=== PATIENT | male | born 1975 | race American Indian/Alaskan Native ===

== ENCOUNTER 2019-06-07 17:33 | Emergency (ER) | payer OTHER ==
--- NOTE | 2019-06-07 18:15 | XRay Report ---
LEFT ANKLE 3 VIEWS LEFT FOOT 3 VIEWS INDICATION: fall off roof. COMPARISON: No relevant prior imaging study available. FINDINGS: Left ankle: There is a minimally displaced fracture through the base of the medial malleolus. There i s a small avulsion fracture along the dorsal aspect of the distal talus, this may arise from the dist al talus or navicular. There appears to be minimally displaced fracture through the posterior process of the talus as well. No additional fractures are seen at the ankle. No acute fracture is seen at the left foot. No dislocation is seen. IMPRESSION: 1. Left ankle fractures as above. Signer Name: Marcio Bush MD Signed: 06/07/2019 6:10 PM Workstation Name: [id number]
--- NOTE | 2019-06-07 19:17 | Emergency Department Report ---
ED Lower Extremity HPI - General Chief Complaint: Extremity Injury, Lower Stated Complaint: FALL, ANKLE Time Seen by Provider: 06/07/19 17:56 Source: patient Mode of arrival: Ambulatory Limitations: No Limitations - History of Present Illness Initial Comments: Patient is a 43-year-old male who presents the emergency room with complaints of left ankle pain that began earlier today. 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 He states he accidentally slipped and fell. He states most of the weight fell onto his left ankle and he fell into a ray. He denies hitting his head or loss of consciousness, any other injury, he denies any neck pain or back pain. He states he was ambulatory after the incident and finished his job but when he got home he began to have increased swelling and pain. He has a past medical history of asthma. He has an allergy to theophylline. - Related Data Previous Rx's Medication Instructions Recorded Last Taken Type HYDROcodone/APAP 5-325 [[place] 1 each PO Q6HR PRN #10 tablet 06/07/19 Unknown Rx 5/325] Allergies Allergy/AdvReac Type Severity Reaction Status Date / Time theophylline [From Chau-Dur] Allergy Shortness Verified 06/07/19 17:34 of Breath ED Review of Systems ROS: Stated complaint: FALL, ANKLE Other details as noted in HPI Comment: All other systems reviewed and negative ED Past Medical Hx - Past Medical History Previous Medical History?: No - Surgical History Additional Surgical History: ANKLE SURGERY - Social History Smoking Status: Current Every Day Smoker - Medications Home Medications: Home Medications Medication Instructions Recorded Confirmed Last Taken Type HYDROcodone/APAP 5-325 [[place] 1 each PO Q6HR PRN #10 tablet 06/07/19 Unknown Rx 5/325] ED Physical Exam - General Limitations: No Limitations General appearance: alert, in no apparent distress - Head Head exam: Present: atraumatic, normocephalic - Eye Eye exam: Present: normal appearance, PERRL, EOMI, other (no racoon eyes). Absent: periorbital swelling, periorbital tenderness - ENT ENT exam: Present: mucous membranes moist - Neck Neck exam: Present: normal inspection, full ROM. Absent: tenderness - Respiratory Respiratory exam: Present: normal lung sounds bilaterally. Absent: respiratory distress, wheezes, rales, rhonchi, stridor, chest wall tenderness, accessory muscle use, decreased breath sounds, prolonged expiratory - Cardiovascular Cardiovascular Exam: Present: regular rate, normal rhythm, normal heart sounds. Absent: systolic murmur, diastolic murmur, rubs, gallop - Extremities Exam Extremities exam: Present: other (ttp to the medial and lateral and anterior left ankle, there is moderate ankle swelling, slightly decreased ROM secondary to pain, no ttp to the foot or toes, neurovascularly intact) - Back Exam Back exam: Present: normal inspection, full ROM. Absent: paraspinal tenderness, vertebral tenderness - Neurological Exam Neurological exam: Present: alert, oriented X3 - Psychiatric Psychiatric exam: Present: normal affect, normal mood - Skin Skin exam: Present: warm, dry, intact ED Course Vital Signs 06/07/19 06/07/19 17:35 19:30 Temperature 97.8 F Pulse Rate 111 H 89 Respiratory 20 16 Rate Blood Pressure 144/93 Blood Pressure 129/82 [Right] O2 Sat by Pulse 94 97 Oximetry ED Lower Extremity MDM - Radiology Data Radiology results: report reviewed LEFT ANKLE 3 VIEWS LEFT FOOT 3 VIEWS INDICATION: fall off roof. COMPARISON: No relevant prior imaging study available. FINDINGS: Left ankle: There is a minimally displaced fracture through the base of the medial malleolus. There is a small avulsion fracture along the dorsal aspect of the distal talus, this may arise from the distal talus or navicular. There appears to be minimally displaced fracture through the posterior process of the talus as well. No additional fractures are seen at the ankle. No acute fracture is seen at the left foot. No dislocation is seen. IMPRESSION: 1. Left ankle fractures as above. Signer Name: Marcio Bush MD Signed: 06/07/2019 6:10 PM Workstation Name: [id number] Transcribed By: SW Dictated By: Marcio Bush MD Electronically Authenticated By: Marcio Bush MD Signed Date/Time: 06/07/191809 DD/ 07 TD/TT: - Medical Decision Making Patient is a 43-year-old male who presents the emergency room with complaints of left ankle pain that began earlier today. 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 He states he accidentally slipped and fell. He states most of the weight fell onto his left ankle and he fell into a ray. He denies hitting his head or loss of consciousness, any other injury, he denies any back pain or neck pain. He states he was ambulatory after the incident and finished his job but when he got home he began to have increased swelling and pain. He has a past medical history of asthma. He has an allergy to theophylline. Vitals with elevated heart rate which improved upon repeat to normal. On exam: ttp to the medial and lateral and anterior left ankle, there is moderate ankle swelling, slightly decreased ROM secondary to pain, no ttp to the foot or toes, neurovascularly intact. XR left ankle and foot: Left ankle: There is a minimally displaced fracture through the base of t he medial malleolus. There is a small avulsion fracture along the dorsal aspect of the distal talus, this may arise from the distal talus or navicular. There appears to be minimally displaced fracture through the posterior process of the talus as well. No additional fractures are seen at the ankle. No acute fracture is seen at the left foot. No dislocation is seen. Patient placed in [place] splint by EMT and remained neurovascularly intact. Patient given crutches and advised not to bear weight at all on the left leg. Patient given prescription for [place]. Advised patient Take medication as prescribed as needed. Do not drive or operate heavy machinery while taking pain medication. Please do not bear weight on your left leg. Follow-up with orthopedic doctor. Return to the emergency room immediately for any new or worsening symptoms. - Differential Diagnosis strain, sprain, fx, dislocation Critical care attestation.: If time is entered above; I have spent that time in minutes in the direct care of this critically ill patient, excluding procedure time. ED Disposition Clinical Impression: Fracture of medial malleolus, left, closed Qualifiers: Encounter type: initial encounter Fracture alignment: nondisplaced Qualified Code(s): S82.55XA - Nondisplaced fracture of medial malleolus of left tibia, initial encounter for closed fracture Fracture of left talus Qualifiers: Encounter type: initial encounter Fracture type: closed Talus location: unspecified portion of talus Fracture alignment: nondisplaced Qualified Code(s): S92.102A - Unspecified fracture of left talus, initial encounter for closed fracture Disposition: DC-01 TO HOME OR SELFCARE Is pt being admited?: No Does the pt Need Aspirin: No Condition: Stable Instructions: Ankle Fracture (ED) Additional Instructions: Take medication as prescribed as needed. Do not drive or operate heavy machinery while taking pain medication. Please do not bear weight on your left leg. Follow-up with orthopedic doctor. Return to the emergency room immediately for any new or worsening symptoms. Prescriptions: HYDROcodone/APAP 5-325 [[place] 5/325] 1 each PO Q6HR PRN #10 tablet PRN Reason: Pain , Severe (7-10) Referrals: AVERY BRUNSON MD [Staff Physician] - 2-3 Days [facility] [Provider Group] - 2-3 Days Time of Disposition: 19:17 Print Language: TELUGU
[2019-06-07 19:45] VITALS: BP 129/82
== END 2019-06-07 19:45 | disposition home or self-care (01) ==
LOC: ED 17:33
DX: S82.55XA Nondisplaced fracture of medial malleolus of left tibia, initial encounter for closed fracture (principal); S92.102A Unspecified fracture of left talus, initial encounter for closed fracture; F17.200 Nicotine dependence, unspecified, uncomplicated; Z98.890 Other specified postprocedural states; Z79.899 Other long term (current) drug therapy; Z88.8 Allergy status to other drugs, medicaments and biological substances; W01.0XXA Fall on same level from slipping, tripping and stumbling without subsequent striking against object, initial encounter; Y93.89 Activity, other specified; Y92.511 Restaurant or cafe as the place of occurrence of the external cause; Y99.8 Other external cause status
CPT/HCPCS: 99283

== ENCOUNTER 2019-06-13 18:02 | Emergency (ER) | payer OTHER ==
[~2019-06-13 18:02] MED LIST: IPRATROPIUM/ALBUTEROL SULFATE 3 ML AMPUL.NEB IH ONE
[2019-06-13] MEDS ORDERED: IPRATROPIUM/ALBUTEROL SULFATE 3 ML AMPUL.NEB IH ONE (18:15)
[2019-06-13] MEDS ORDERED: ALBUTEROL 2.5 MG/3 ML NEBU IH ONE (21:46)
[2019-06-13] MEDS ORDERED: methylPREDNISolone Sod Succinate 125 MG/2 ML INJ IM ONE (21:47)
--- NOTE | 2019-06-13 23:12 | Emergency Department Report ---
- General Chief Complaint: Adult Asthma Stated Complaint: ASTHMA Source: patient Mode of arrival: Wheelchair Limitations: No Limitations - History of Present Illness Initial Comments: Patient is a 43-year-old male with a history of asthma and who continues to smoke cigarettes and who presented to the ED with complaint of acute onset persistent nasal and sinus congestion, persistent dry cough with shortness of breath and wheezing for the last 2 days after he ran out of his albuterol inhaler and nebulizers at home. Patient states that in the last 12 hours the wheezing and shortness of breath as well as dry cough have worsened. Patient denies fever, chills, dizziness, nausea, vomiting, chest pain, sore throat, nasal and sinus congestion, abdominal pain, headache, diarrhea, palpitations, and back pain. MD Complaint: cough, rhinorrhea, nasal congestion, other (shortness of breath) -: Sudden, days(s) (2) Severity: severe Severity scale (0 -10): 7 Quality: dull, aching Consistency: intermittent Improves With: nothing Worsens With: nothing Associated Symptoms: denies other symptoms, rhinorrhea, nasal congestion, cough, shortness of breath. denies: fever, chills, myalgias, diaphoresis, headache, sore throat, chest pain, abdominal pain, nausea, vomiting, diarrhea, dysuria, rash, confusion, right sweats, weight loss, epistaxis, ear pain Treatments Prior to Arrival: none - Related Data Previous Rx's Medication Instructions Recorded Last Taken Type HYDROcodone/APAP 5-325 [[place] 1 each PO Q6HR PRN #10 tablet 06/07/19 Unknown Rx 5/325] Albuterol Sulfate [Albuterol 0.63% 3 ml IH Q6H PRN #75 ml 06/13/19 Unknown Rx NEBS] Albuterol Sulfate [Proventil Hfa] 1 - 2 puff IH Q6H PRN #1 inh 06/13/19 Unknown Rx Benzonatate [Tessalon Perles] 100 mg PO Q8HR #30 capsule 06/13/19 Unknown Rx Cetirizine HCl [Zyrtec 10mg tab] 10 mg PO DAILY #30 tablet 06/13/19 Unknown Rx Prednisone [predniSONE 10 mg 10 mg PO .TAPER #21 tab.ds.pk 06/13/19 Unknown Rx (6-Day Pack, 21 Tabs)] Allergies Allergy/AdvReac Type Severity Reaction Status Date / Time theophylline [From Chau-Dur] Allergy Shortness Verified 06/07/19 17:34 of Breath ED Review of Systems ROS: Stated complaint: ASTHMA Other details as noted in HPI Constitutional: denies: chills, fever Eyes: denies: eye pain, eye discharge, vision change ENT: congestion. denies: ear pain, throat pain Respiratory: cough, shortness of breath, SOB at rest, wheezing Cardiovascular: denies: chest pain, palpitations Endocrine: no symptoms reported Gastrointestinal: denies: abdominal pain, nausea, diarrhea Genitourinary: denies: urgency, dysuria Musculoskeletal: denies: back pain, joint swelling, arthralgia Skin: denies: rash, lesions Neurological: denies: headache, weakness, paresthesias Psychiatric: denies: anxiety, depression Hematological/Lymphatic: denies: easy bleeding, easy bruising ED Past Medical Hx - Past Medical History Previous Medical History?: Yes Hx Asthma: Yes - Surgical History Past Surgical History?: Yes Additional Surgical History: ANKLE SURGERY - Social History Smoking Status: Never Smoker - Medications Home Medications: Home Medications Medication Instructions Recorded Confirmed Last Taken Type HYDROcodone/APAP 5-325 [[place] 1 each PO Q6HR PRN #10 tablet 06/07/19 Unknown Rx 5/325] Albuterol Sulfate [Albuterol 0.63% 3 ml IH Q6H PRN #75 ml 06/13/19 Unknown Rx NEBS] Albuterol Sulfate [Proventil Hfa] 1 - 2 puff IH Q6H PRN #1 inh 06/13/19 Unknown Rx Benzonatate [Tessalon Perles] 100 mg PO Q8HR #30 capsule 06/13/19 Unknown Rx Cetirizine HCl [Zyrtec 10mg tab] 10 mg PO DAILY #30 tablet 06/13/19 Unknown Rx Prednisone [predniSONE 10 mg 10 mg PO .TAPER #21 tab.ds.pk 06/13/19 Unknown Rx (6-Day Pack, 21 Tabs)] ED Physical Exam - General Limitations: No Limitations General appearance: alert, in no apparent distress - Head Head exam: Present: atraumatic, normocephalic, normal inspection - Eye Eye exam: Present: normal appearance, PERRL, EOMI Pupils: Present: normal accommodation - ENT ENT exam: Present: normal exam, normal orophraynx, mucous membranes moist, TM's normal bilaterally, normal external ear exam - Neck Neck exam: Present: normal inspection, full ROM. Absent: tenderness, lymphadenopathy - Respiratory Respiratory exam: Present: wheezes (Moderately diffuse coarse wheezes throughout). Absent: respiratory distress, rales, rhonchi, chest wall tenderness, accessory muscle use, decreased breath sounds - Cardiovascular Cardiovascular Exam: Present: regular rate, normal rhythm, normal heart sounds. Absent: systolic murmur, diastolic murmur, rubs, gallop - GI/Abdominal GI/Abdominal exam: Present: soft, normal bowel sounds. Absent: tenderness, guarding, rebound, hyperactive bowel sounds, hypoactive bowel sounds, organomegaly - Extremities Exam Extremities exam: Present: normal inspection, full ROM, normal capillary refill - Back Exam Back exam: Present: normal inspection, full ROM. Absent: tenderness, CVA tenderness (R), muscle spasm, paraspinal tenderness, vertebral tenderness - Neurological Exam Neurological exam: Present: alert, oriented X3, CN II-XII intact, normal gait, reflexes normal - Psychiatric Psychiatric exam: Present: normal affect, normal mood - Skin Skin exam: Present: warm, dry, intact, normal color. Absent: rash ED Course Vital Signs 06/13/19 18:10 Temperature 98.4 F Pulse Rate 99 H Respiratory 22 Rate Blood Pressure 143/116 [Left] O2 Sat by Pulse 97 Oximetry ED Medical Decision Making - Radiology Data Radiology results: report reviewed, image reviewed Findings [facility] [address] [place] [address] XRay Report Signed Patient: DEVAN SOARES MR# : [id number] : 1975 Acct:[id number] Age/Sex: 43 / M ADM Date: 06/13/19 Loc: ED Attending Dr: Ordering Physician: RAMILA LISA Date of Service: 06/13/19 Procedure(s): XR chest routine 2V Accession Number(s): [id number] cc: RAMILA LISA Fluoro Time In Minutes: CHEST 2 VIEWS INDICATION / CLINICAL INFORMATION: MAIN: COUGH, DYSPNEA; Pt. c/o asthma exacerbation.. COMPARISON: None available. FINDINGS: SUPPORT DEVICES: None. HEART / MEDIASTINUM: No significant abnormality. LUNGS / PLEURA: No significant pulmonary or pleural abnormality. No pneumothorax. ADDITIONAL FINDINGS: Left second rib deformity may be the result of remote trauma. IMPRESSION: 1. No acute findings. Signer Name: Bhupinder Arrington MD Signed: 06/13/2019 11:07 PM Workstation Name: [id number] Transcribed By: ADALBERTO Dictated By: Bhupinder Arrington MD Electronically Authenticated By: Bhupinder Arrington MD Signed Date/Time: 06/13/192306 DD/ 05 TD/TT: - Medical Decision Making This is a 43-year-old male with a history of asthma and who continues to smoke cigarettes and who presented to the ED with complaint of acute onset persistent nasal and sinus congestion, persistent dry cough with shortness of breath and wheezing for the last 2 days after he ran out of his albuterol inhaler and nebulizers at home. In the ED, patient is alert and oriented x3 and is not in distress with normal vital signs, with oxygen saturation of 97% in room air. Physical exam revealed diffuse moderate coarse wheezes throughout the lung. Patient received DuoNeb treatment as well as albuterol treatment and steroids in the ED. Chest x-ray shows no acute cardiopulmonary abnormalities or pneumonitis. On reevaluation, the wheezing resolved and patient felt better. Patient was discharged home with a refill of his albuterol nebulizer and inhalers, and prescription for oral prednisone. Patient was advised to follow- up with his primary care physician in 7 to 10 days for reevaluation or return to the ED immediately if symptoms get worse. - Differential Diagnosis Asthma; Bronchitis; Pneumonia; URI; Allergic rhinitis Critical care attestation.: If time is entered above; I have spent that time in minutes in the direct care of this critically ill patient, excluding procedure time. ED Disposition Clinical Impression: Acute bronchitis with asthma with acute exacerbation, Acute upper respiratory infection Acute asthma exacerbation Qualifiers: Asthma severity: moderate Asthma persistence: persistent Qualified Code(s): J45.41 - Moderate persistent asthma with (acute) exacerbation Disposition: -01 TO HOME OR SELFCARE Is pt being admited?: No Does the pt Need Aspirin: No Condition: Stable Instructions: Acute Bronchitis (ED), Asthma (ED) Additional Instructions: Your symptoms are due to asthma and bronchitis exacerbation. Therefore take medication with food, drink plenty fluids and follow-up with your primary care physician in 5 to 7 days for reevaluation. Return to the ED immediately if symptoms get worse. Prescriptions: Albuterol Sulfate [Albuterol 0.63% NEBS] 3 ml IH Q6H PRN #75 ml PRN Reason: Dyspnea Prednisone [predniSONE 10 mg (6-Day Pack, 21 Tabs)] 10 mg PO .TAPER #21 tab.ds.pk Albuterol Sulfate [Proventil Hfa] 1 - 2 puff IH Q6H PRN #1 inh PRN Reason: Dyspnea Benzonatate [Tessalon Perles] 100 mg PO Q8HR #30 capsule Cetirizine HCl [Zyrtec 10mg tab] 10 mg PO DAILY #30 tablet Referrals: [facility] [Provider Group] - 7-10 days Time of Disposition: 23:12 Print Language: EMIRATI
[2019-06-14 00:06] VITALS: BP 125/88
== END 2019-06-14 00:04 | disposition home or self-care (01) ==
LOC: ED 18:02
DX: J45.901 Unspecified asthma with (acute) exacerbation (principal); J20.9 Acute bronchitis, unspecified
CPT/HCPCS: 71046; 94640; 96372; 99283; J2930

== ENCOUNTER 2019-07-19 04:28 | Emergency (ER) | payer OTHER ==
[2019-07-19 04:54] VITALS: BP 164/99
[2019-07-19] MEDS ORDERED: IPRATROPIUM/ALBUTEROL SULFATE 3 ML AMPUL.NEB IH ONE (05:45)
[2019-07-19] MEDS ORDERED: SODIUM CHLORIDE 0.9% 1000 ML 1,000 ML IV ONE (05:46)
[2019-07-19] MEDS ORDERED: methylPREDNISolone Sod Succinate 125 MG/2 ML INJ IV ONE (05:47)
[2019-07-19 06:23] LABS: Basophils % (Auto) 0.5 % (0.0-1.8); Eosinophils # (Auto) 0.3 K/mm3 (0.0-0.4); Eosinophils % (Auto) 4.1 % (0.0-4.3); Hematocrit 44.2 % (35.5-45.6); Hemoglobin 14.9 gm/dl (11.8-15.2); Lymphocytes # (Auto) 0.9 K/mm3 (1.2-5.4); Lymphocytes % (Auto) 14.3 % (13.4-35.0); Mean Corpuscular HGB Conc 34 % (32-34); Mean Corpuscular Volume 92 fl (84-94); Monocytes # (Auto) 0.6 K/mm3 (0.0-0.8); Monocytes % (Auto) 9.1 % (0.0-7.3); Platelet Count 251 K/mm3 (140-440); Red Blood Count 4.81 M/mm3 (3.65-5.03); Red Cell Distribution Width 12.9 % (13.2-15.2)
--- NOTE | 2019-07-19 06:25 | XRay Report ---
CHEST 1 VIEW INDICATION: dyspnea, asthma. COMPARISON: 06/13/2019 FINDINGS: Support devices: None. Heart: Within normal limits. Lungs/Pleura: No acute air space or interstitial disease. Additional findings: None. IMPRESSION: 1. No acute findings. Signer Name: James Sanchez MD Signed: 07/19/2019 6:21 AM Workstation Name: [id number]
[2019-07-19 06:39] LABS: Alanine Aminotransferase 16 units/L (7-56); Albumin 4.4 g/dL (3.9-5); BUN/Creatinine Ratio 8; Blood Urea Nitrogen 9 mg/dL (9-20); Calcium 9.4 mg/dL (8.4-10.2); Hemolysis Index 6
[2019-07-19] MEDS ORDERED: ALBUTEROL 2.5 MG/3 ML NEBU IH ONE (06:46)
[2019-07-19] MEDS ORDERED: POTASSIUM CHLORIDE ER 20 MEQ TAB PO ONE (06:56)
--- NOTE | 2019-07-19 07:19 | Emergency Department Report ---
ED Shortness of Breath HPI - General Chief Complaint: Dyspnea/Respdistress Stated Complaint: WHEEZING Source: patient Mode of arrival: Ambulatory Limitations: No Limitations - History of Present Illness Initial Comments: Patient is a 43-year-old -[place] male with a history of asthma and who smokes cigarettes presents to the ED with complaint of acute onset persistent s hortness of breath, chest tightness and persistent dry cough for the last 4 hours. Patient states that he try to use his albuterol inhaler and nebulizers at home with no relief. Patient states that he could not walk because of persistent shortness of breath and had to come to the ED via EMS. Patient states that over 12 hours ago he smoked cigarettes and suspect that this may have triggered his asthma attack. Patient denies chest pain, shortness of breath, nausea, vomiting, fever, chills, dizziness, syncope, headache, abdominal pain, nasal and sinus congestion, sore throat, seizures, diaphoresis or palpitations. MD Complaint: shortness of breath, cough, chest pain (Chest wall tightness), "asthma attack" -: Sudden, hour(s) (4) Severity: severe Pain Scale: 7 Quality: dull, other (tightness) Consistency: constant Improves With: nothing Worsens With: nothing Known History Of: asthma Context: smoke/fume exposure, anxiety Associated Symptoms: cough Treatments Prior to Arrival: bronchodilator - Related Data Home Oxygen Therapy: No Previous Rx's Medication Instructions Recorded Last Taken Type HYDROcodone/APAP 5-325 [Welch 1 each PO Q6HR PRN #10 tablet 06/07/19 Unknown Rx 5/325] Albuterol Sulfate [Albuterol 0.63% 3 ml IH Q6H PRN #75 ml 06/13/19 Unknown Rx NEBS] Benzonatate [Tessalon Perles] 100 mg PO Q8HR #30 capsule 06/13/19 Unknown Rx Cetirizine HCl [Zyrtec 10mg tab] 10 mg PO DAILY #30 tablet 06/13/19 Unknown Rx Prednisone [predniSONE 10 mg 10 mg PO .TAPER #21 tab.ds.pk 06/13/19 Unknown Rx (6-Day Pack, 21 Tabs)] ALBUTEROL NEB's [Proventil 0.083% 3 ml IH Q6H PRN #75 ml 07/19/19 Unknown Rx NEBS] Albuterol Sulfate [Proventil Hfa] 1 - 2 puff IH Q6H PRN #1 inh 07/19/19 Unknown Rx Azithromycin [Zithromax Z-CARLOS] 250 mg PO DAILY #6 tablet 07/19/19 Unknown Rx Benzonatate [Tessalon Perles] 100 mg PO Q8HR #30 capsule 07/19/19 Unknown Rx Prednisone [predniSONE 10 mg 10 mg PO .TAPER #21 tab.ds.pk 07/19/19 Unknown Rx (6-Day Pack, 21 Tabs)] Allergies Allergy/AdvReac Type Severity Reaction Status Date / Time theophylline [From Chau-Dur] Allergy Shortness Verified 07/19/19 04:45 of Breath ED Review of Systems ROS: Stated complaint: WHEEZING Other details as noted in HPI Constitutional: denies: chills, fever Eyes: denies: eye pain, eye discharge, vision change ENT: congestion. denies: ear pain, throat pain Respiratory: cough, shortness of breath, wheezing Cardiovascular: chest pain (Diffuse chest tightness). denies: palpitations Endocrine: no symptoms reported Gastrointestinal: denies: abdominal pain, nausea, diarrhea Genitourinary: denies: urgency, dysuria Musculoskeletal: denies: back pain, joint swelling, arthralgia Skin: denies: rash, lesions Neurological: denies: headache, weakness, paresthesias Psychiatric: anxiety. denies: depression Hematological/Lymphatic: denies: easy bleeding, easy bruising ED Past Medical Hx - Past Medical History Hx Asthma: Yes - Surgical History Additional Surgical History: ANKLE SURGERY - Social History Smoking Status: Never Smoker Substance Use Type: Marijuana - Medications Home Medications: Home Medications Medication Instructions Recorded Confirmed Last Taken Type HYDROcodone/APAP 5-325 [Welch 1 each PO Q6HR PRN #10 tablet 06/07/19 Unknown Rx 5/325] Albuterol Sulfate [Albuterol 0.63% 3 ml IH Q6H PRN #75 ml 06/13/19 Unknown Rx NEBS] Benzonatate [Tessalon Perles] 100 mg PO Q8HR #30 capsule 06/13/19 Unknown Rx Cetirizine HCl [Zyrtec 10mg tab] 10 mg PO DAILY #30 tablet 06/13/19 Unknown Rx Prednisone [predniSONE 10 mg 10 mg PO .TAPER #21 tab.ds.pk 06/13/19 Unknown Rx (6-Day Pack, 21 Tabs)] ALBUTEROL NEB's [Proventil 0.083% 3 ml IH Q6H PRN #75 ml 07/19/19 Unknown Rx NEBS] Albuterol Sulfate [Proventil Hfa] 1 - 2 puff IH Q6H PRN #1 inh 07/19/19 Unknown Rx Azithromycin [Zithromax Z-CARLOS] 250 mg PO DAILY #6 tablet 07/19/19 Unknown Rx Benzonatate [Tessalon Perles] 100 mg PO Q8HR #30 capsule 07/19/19 Unknown Rx Prednisone [predniSONE 10 mg 10 mg PO .TAPER #21 tab.ds.pk 07/19/19 Unknown Rx (6-Day Pack, 21 Tabs)] ED Physical Exam - General Limitations: No Limitations General appearance: alert, in no apparent distress - Head Head exam: Present: atraumatic, normocephalic, normal inspection - Eye Eye exam: Present: normal appearance, PERRL, EOMI Pupils: Present: normal accommodation - ENT ENT exam: Present: normal exam, normal orophraynx, mucous membranes moist, TM's normal bilaterally, normal external ear exam - Neck Neck exam: Present: normal inspection, full ROM - Respiratory Respiratory exam: Present: wheezes (Diffuse coarse wheezes throughout). Absent: respiratory distress, rales, rhonchi, chest wall tenderness, accessory muscle use, decreased breath sounds, prolonged expiratory - Cardiovascular Cardiovascular Exam: Present: normal rhythm, tachycardia, normal heart sounds. Absent: systolic murmur, diastolic murmur, rubs, gallop - GI/Abdominal GI/Abdominal exam: Present: soft, normal bowel sounds. Absent: tenderness, guarding, rebound, hyperactive bowel sounds, hypoactive bowel sounds - Extremities Exam Extremities exam: Present: normal inspection, full ROM, normal capillary refill - Back Exam Back exam: Present: normal inspection, full ROM. Absent: tenderness, CVA tenderness (R), CVA tenderness (L), muscle spasm, paraspinal tenderness, vertebral tenderness, rash noted - Neurological Exam Neurological exam: Present: alert, oriented X3, CN II-XII intact, normal gait, reflexes normal - Psychiatric Psychiatric exam: Present: normal affect, normal mood, anxious - Skin Skin exam: Present: warm, dry, intact, normal color. Absent: rash ED Course Vital Signs 07/19/19 04:53 Temperature 98.4 F Pulse Rate 121 H Respiratory 23 Rate Blood Pressure 164/99 [Left] O2 Sat by Pulse 98 Oximetry ED Medical Decision Making - Lab Data Result diagrams: 07/19/19 05:49 07/19/19 05:49 - Radiology Data Radiology results: report reviewed, image reviewed Findings [facility] [address] [place] [address] XRay Report Signed Patient: DEVAN SOARES MR# : [id number] : 1975 Acct:[id number] Age/Sex: 43 / M ADM Date: 07/19/19 Loc: ED Attending Dr: Ordering Physician: RAMILA LISA Date of Service: 07/19/19 Procedure(s): XR chest 1V ap Accession Number(s): [id number] cc: RAMILA LISA Fluoro Time In Minutes: CHEST 1 VIEW INDICATION: dyspnea, asthma. COMPARISON: 06/13/2019 FINDINGS: Support devices: None. Heart: Within normal limits. Lungs/Pleura: No acute air space or interstitial disease. Additional findings: None. IMPRESSION: 1. No acute findings. Signer Name: James Sanchez MD Signed: 07/19/2019 6:21 AM Workstation Name: [id number] Transcribed By: HELENA Dictated By: James Sanchez MD Electronically Authenticated By: James Sanchez MD Signed Date/Time: 07/19/19620 DD/ 9 TD/TT: - Medical Decision Making This is a 43-year-old -[place]aur[place] male with a history of asthma and who smokes cigarettes presents to the ED with complaint of acute onset persistent shortness of breath, chest tightness and persistent dry cough for the last 4 hours. Patient states that he try to use his albuterol inhaler and nebulizers at home with no relief. Patient states that he could not walk because of persistent shortness of breath and had to come to the ED via EMS. Patient states that over 12 hours ago he smoked cigarettes and suspect that this may chambers ve triggered his asthma attack. In the ED, patient is alert and oriented x3 and is not in distress but tachycardic and anxious in triage. Patient was treated in the ED with DuoNeb, Solu-Medrol and normal saline 1 L IV bolus. Lab test results were reviewed and are all nonactionable except for mild hypokalemia of 3.5 mmol/L and hyperglycemia 120 mg/dL. Chest x-ray shows no acute cardiopulmonary abnormalities or pneumonitis. On reevaluation, patient wheezing is still persistent despite the 1 round of DuoNeb. Another round of albuterol 5 mg nebulizer was given to the patient. Patient was also counseled on the importance of quitting tobacco with his history of asthma with frequent exacerba tions. Patient verbalized understanding and promised to consider quitting tobacco smoking habit. On reevaluation, patient felt better, tachycardia resolved and the wheezing also improved significantly with oxygen saturation of 98% on room air. Patient was discharged home on prednisone Dosepak and cough medications and advised to follow-up with his primary care physician in 3 to 5 days for reevaluation or return to the ED immediately if symptoms get worse. - Differential Diagnosis asthma; bronchitis; Pneumonia; URI; anxiety Critical care attestation.: If time is entered above; I have spent that time in minutes in the direct care of this critically ill patient, excluding procedure time. ED Disposition Clinical Impression: Acute asthmatic bronchitis, Shortness of breath, Anxiety as acute reaction to exceptional stress Disposition: DC-01 TO HOME OR SELFCARE Is pt being admited?: No Does the pt Need Aspirin: No Condition: Stable Instructions: Asthma (ED), Acute Bronchitis (ED), Reactive Airways Disease (ED), Dyspnea (ED) Additional Instructions: Take medication with food, drink plenty of fluids and follow-up with your primary care physician in 3 to 5 days for reevaluation. Consider quitting tobacco smoking habit to improve on your asthma exacerbations. Return to the ED immediately if symptoms get worse. Prescriptions: Prednisone [predniSONE 10 mg (6-Day Pack, 21 Tabs)] 10 mg PO .TAPER #21 tab.ds.pk ALBUTEROL NEB's [Proventil 0.083% NEBS] 3 ml IH Q6H PRN #75 ml PRN Reason: Wheezing Albuterol Sulfate [Proventil Hfa] 1 - 2 puff IH Q6H PRN #1 inh PRN Reason: Dyspnea Benzonatate [Tessalon Perles] 100 mg PO Q8HR #30 capsule Azithromycin [Zithromax Z-CARLOS] 250 mg PO DAILY #6 tablet Referrals: [facility] [Provider Group] - 3-5 Days Time of Disposition: 07:26 Print Language: MOHAWK
== END 2019-07-19 08:03 | disposition home or self-care (01) ==
LOC: ED 04:28
DX: J45.909 Unspecified asthma, uncomplicated (principal); F41.1 Generalized anxiety disorder; F12.10 Cannabis abuse, uncomplicated; Z79.899 Other long term (current) drug therapy; Z88.8 Allergy status to other drugs, medicaments and biological substances
CPT/HCPCS: 36415; 71045; 80053; 85025; 94640; 96374; 99284; J2930; J7030

== ENCOUNTER 2019-10-31 14:03 | Emergency (ER) | payer SELFPAY ==
[2019-10-31] MEDS ORDERED: dexAMETHasone 20 MG/5 ML VIAL IV ONE (14:16)
[2019-10-31] MEDS ORDERED: ALBUTEROL 2.5 MG/3 ML NEBU IH ONE ×3 (14:16→15:37)
[2019-10-31] MEDS ORDERED: MAGNESIUM SULFATE 2 GM/50 ML BAG IV ONE (14:16)
[2019-10-31] MEDS ORDERED: SODIUM CHLORIDE 0.9% 1000 ML 1,000 ML IV ONE (14:16)
[2019-10-31] MEDS ORDERED: IPRATROPIUM 0.02% NEBU 2.5 ML IH ONE (14:16)
--- NOTE | 2019-10-31 14:28 | Emergency Department Report ---
ED Asthma HPI - General Chief Complaint: Adult Asthma Stated Complaint: ASTHMA Time Seen by Provider: 10/31/19 14:15 Source: patient Mode of arrival: Ambulatory Limitations: No Limitations - History of Present Illness Initial Comments: 43-year-old -Russian male presents to the emergency room for a 2-day history of shortness of breath and wheezing. Patient states that he has a history of asthma and he is not sure if he had eaten something yesterday that could have made his wheezing and shortness of breath worse. Patient states he has been using his albuterol with no resolution. Patient denies any fever chills no nausea no vomiting. Patient denies any rashes. MD Complaint: wheezing Onset/Timin -: days(s) Asthma History: history of prior ED visit Severity: moderate Context: allergen exposure Treatments Prior to Arrival: inhaled bronchodilator - Related Data Current Asthma Therapy: inhaled bronchodilator Previous Rx's Medication Instructions Recorded Last Taken Type Benzonatate [Tessalon Perles] 100 mg PO Q8HR #30 capsule 07/19/19 Unknown Rx Doxycycline Hyclate [Doxycycline 100 mg PO Q12HR #20 tab 07/19/19 Unknown Rx Hyclate TAB] ALBUTEROL NEB's [Proventil 0.083% 3 ml IH Q6H PRN #270 ml 10/31/19 Unknown Rx NEBS] Albuterol Sulfate [Proventil Hfa] 1 - 2 puff IH Q6H PRN #1 hfa.aer.ad 10/31/19 Unknown Rx Prednisone [predniSONE 10 mg 10 mg PO .TAPER #21 tab.ds.pk 10/31/19 Unknown Rx (6-Day Pack, 21 Tabs)] Allergies Allergy/AdvReac Type Severity Reaction Status Date / Time theophylline [From Chau-Dur] Allergy Shortness Verified 07/19/19 04:45 of Breath ED Review of Systems ROS: Stated complaint: ASTHMA Other details as noted in HPI Comment: All other systems reviewed and negative ED Past Medical Hx - Past Medical History Hx Asthma: Yes - Surgical History Additional Surgical History: ANKLE SURGERY - Social History Smoking Status: Never Smoker - Medications Home Medications: Home Medications Medication Instructions Recorded Confirmed Last Taken Type Benzonatate [Tessalon Perles] 100 mg PO Q8HR #30 capsule 07/19/19 Unknown Rx Doxycycline Hyclate [Doxycycline 100 mg PO Q12HR #20 tab 07/19/19 Unknown Rx Hyclate TAB] ALBUTEROL NEB's [Proventil 0.083% 3 ml IH Q6H PRN #270 ml 10/31/19 Unknown Rx NEBS] Albuterol Sulfate [Proventil Hfa] 1 - 2 puff IH Q6H PRN #1 hfa.aer.ad 10/31/19 Unknown Rx Prednisone [predniSONE 10 mg 10 mg PO .TAPER #21 tab.ds.pk 10/31/19 Unknown Rx (6-Day Pack, 21 Tabs)] ED Physical Exam - General Limitations: No Limitations General appearance: alert, in no apparent distress, in distress - Head Head exam: Present: atraumatic, normocephalic - Eye Eye exam: Present: normal appearance - ENT ENT exam: Present: mucous membranes moist - Respiratory Respiratory exam: Present: wheezes, rhonchi - Cardiovascular Cardiovascular Exam: Present: regular rate, normal rhythm. Absent: systolic murmur, diastolic murmur, rubs, gallop - GI/Abdominal GI/Abdominal exam: Present: soft, normal bowel sounds - Neurological Exam Neurological exam: Present: alert, oriented X3, normal gait - Psychiatric Psychiatric exam: Present: normal affect, normal mood - Skin Skin exam: Present: warm, dry, intact, normal color. Absent: rash ED Course Vital Signs 10/31/19 10/31/19 10/31/19 14:08 14:20 14:45 Temperature 97.4 F L Pulse Rate 96 H Pulse Rate [ 105 H 106 H Anterior Bilateral Throughout] Respiratory 24 Rate Respiratory 20 19 Rate [Anterior Bilateral Throughout] Blood Pressure 154/96 Blood Pressure [Left] O2 Sat by Pulse 100 Oximetry 10/31/19 10/31/19 10/31/19 15:40 16:22 16:47 Temperature 97.7 F Pulse Rate 102 H Pulse Rate [ 106 H Anterior Bilateral Throughout] Respiratory 16 18 Rate Respiratory 19 Rate [Anterior Bilateral Throughout] Blood Pressure Blood Pressure 134/84 [Left] O2 Sat by Pulse 97 96 Oximetry - Reevaluation(s) Reevaluation #1: 10/31/19 17:36 Patient felt better after having subcu epi. ED Medical Decision Making - Radiology Data Referring Physician:LOC MARCOSPatient Name:DEVAN SOARESPatient ID:[id number] of [id number]:MaleAccession:[id number] Date:[id number] Status:Finalized Findings [facility] [address] [place] [address] XRay Report Signed Patient: DEVAN SOARES MR# : [id number] : 1975 Acct:[id number] Age/Sex: 43 / M ADM Date: 10/31/19 Loc: ED Attending Dr: Ordering Physician: RAMILA HURTADO Date of Service: 10/31/19 Procedure(s): XR chest 1V ap Accession Number(s): [id number] cc: RAMILA HURTADO Fluoro Time In Minutes: CHEST 1 VIEW 10/31/2019 2:42 PM INDICATION / CLINICAL INFORMATION: Wheezy. COMPARISON: 07/19/19 FINDINGS: SUPPORT DEVICES: None. HEART / MEDIASTINUM: No significant abnormality. LUNGS / PLEURA: No significant pulmonary or pleural abnormality. No pneumothorax. ADDITIONAL FINDINGS: No significant additional findings. IMPRESSION: 1. No acute findings. No change. Signer Name: Rodolfo Henderson MD Signed: 10/31/2019 3:44 PM Workstation Name: [id number] Transcribed By: DT Dictated By: Jaun Henderson MD Electronically Authenticated By: Jaun Henderson MD Signed Date/Time: 10/31/19 1544 DD/ 1543 TD/TT: - Medical Decision Making 43-year-old -Russian male presents to the emergency room for a 2-day history of shortness of breath and wheezing. Patient states that he has a history of asthma and he is not sure if he had eaten something yesterday that could have made his wheezing and shortness of breath worse. Patient states he has been using his albuterol with no resolution. Patient denies any fever chills no nausea no vomiting. Patient denies any rashes. Albuterol Atrovent IV normal saline magnesium 2 g Zyrtec 10 dexamethasone 10 mg IV. Patient has a repeat treatment of albuterol 5 mg with no improvement. Respiratory called for evaluation they also recommend another 5 mg of albuterol. Discussed with Dr. Hooks ER attending he recommends to give 0.3 mg of epi subcu and reevaluate. Orders have been placed for cardiac monitoring and pulse ox monitoring. Attending states that patient can have up to 3 doses of epi if no improvement consider admission. Patient reports he feels much better after having a 0.3 mg of subcu epi. Patient be discharged home on albuterol inhalation solution as well as MDI. Patient will be discharged home with a steroid taper pack and a referral to Dr. Mercedes Jeronimo. Critical Care Time: Yes Critical care time in (mins) excluding proc time.: 30 (Multiple asthma joyce tments consulted with respiratory therapist) Critical care attestation.: If time is entered above; I have spent that time in minutes in the direct care of this critically ill patient, excluding procedure time. ED Disposition Clinical Impression: Asthma exacerbation attacks Disposition: TO HOME OR SELFCARE Is pt being admited?: No Does the pt Need Aspirin: No Condition: Stable Instructions: Asthma (ED) Additional Instructions: Please take medications as prescribed. Is very important for you to follow-up with a primary care provider I have listed 1 below for your convenience. Prescriptions: Prednisone [predniSONE 10 mg (6-Day Pack, 21 Tabs)] 10 mg PO .TAPER #21 tab.ds.pk ALBUTEROL NEB's [Proventil 0.083% NEBS] 3 ml IH Q6H PRN #270 ml PRN Reason: Wheezing Albuterol Sulfate [Proventil Hfa] 1 - 2 puff IH Q6H PRN #1 hfa.aer.ad PRN Reason: Dyspnea Referrals: PRIMARY CAREMD [Primary Care Provider] - 3-5 Days ALISA MELGOZA MD [Staff Physician] - 3-5 Days Forms: Work/School Release Form(ED)
[2019-10-31] MEDS ORDERED: CETIRIZINE 10 MG TAB PO ONE (14:29)
--- NOTE | 2019-10-31 15:48 | XRay Report ---
CHEST 1 VIEW 10/31/2019 2:42 PM INDICATION / CLINICAL INFORMATION: Wheezy. COMPARISON: 07/19/19 FINDINGS: SUPPORT DEVICES: None. HEART / MEDIASTINUM: No significant abnormality. LUNGS / PLEURA: No significant pulmonary or pleural abnormality. No pneumothorax. ADDITIONAL FINDINGS: No significant additional findings. IMPRESSION: 1. No acute findings. No change. Signer Name: Rodolfo Henderson MD Signed: 10/31/2019 3:44 PM Workstation Name: [id number]
[2019-10-31] MEDS ORDERED: EPINEPHrine/PF 1 MG/1 ML INJ SUB-Q ONE (16:22)
[2019-10-31 18:24] VITALS: BP 134/73
== END 2019-10-31 18:23 | disposition home or self-care (01) ==
LOC: ED 14:03
DX: J45.901 Unspecified asthma with (acute) exacerbation (principal)
CPT/HCPCS: 71045; 94640; 96365; 96372; 96375; 99285; J0171; J1100; J3475; J7030; 94644

== ENCOUNTER 2021-02-03 03:01 | Emergency (ER) | payer OTHER ==
[2021-02-03] MEDS ORDERED: IPRATROPIUM 0.02% NEBU 2.5 ML IH ONE (03:02)
[2021-02-03] MEDS ORDERED: ALBUTEROL 2.5 MG/3 ML NEBU IH ONE (03:02)
[2021-02-03] MEDS ORDERED: MAGNESIUM SULFATE 2 GM/50 ML BAG IV ONE (03:02)
[2021-02-03] MEDS ORDERED: SODIUM CHLORIDE 0.9% 1000 ML 1,000 ML IV ONE (03:02)
[2021-02-03] MEDS ORDERED: dexAMETHasone 4 MG/ML VIAL IV ONE (03:02)
[2021-02-03] MEDS ORDERED: diphenhydrAMINE 50 MG/ML VIAL IV STA (03:03)
--- NOTE | 2021-02-03 03:10 | Emergency Department Report ---
ED Asthma HPI - General Stated Complaint: asthma exacerbation Time Seen by Provider: 02/03/21 03:02 - History of Present Illness Initial Comments: [id number] male with a known history of asthma presents emerged department complaining of a flareup been present over the last 1 to 2 weeks. States he has been trying utilize the medications at home but has been unsuccessful he is run out of his steroids had adjuvant medication to help to mitigate the symptoms so presents to the ED seeking steroids to help with his asthma flareup. He reports no known noxious stimuli. No chest pain, no palpitations, no fever, chills, sweats. No hemoptysis no hematemesis no hematochezia MD Complaint: "asthma attack", shortness of breath, wheezing - Related Data Previous Rx's Medication Instructions Recorded Last Taken Type Benzonatate [Tessalon Perles] 100 mg PO Q8HR #30 capsule 07/19/19 Unknown Rx Doxycycline Hyclate [Doxycycline 100 mg PO Q12HR #20 tab 07/19/19 Unknown Rx Hyclate TAB] ALBUTEROL NEB's [Proventil 0.083% 3 ml IH Q6H PRN #270 ml 10/31/19 Unknown Rx NEBS] Albuterol Sulfate [Proventil Hfa] 1 - 2 puff IH Q6H PRN #1 hfa.aer.ad 10/31/19 U nknown Rx Prednisone [predniSONE 10 mg 10 mg PO .TAPER #21 tab.ds.pk 10/31/19 Unknown Rx (6-Day Pack, 21 Tabs)] Allergies Allergy/AdvReac Type Severity Reaction Status Date / Time theophylline [From Chau-Dur] Allergy Shortness Verified 07/19/19 04:45 of Breath ED Review of Systems ROS: Stated complaint: asthma exacerbation Other details as noted in HPI Comment: All other systems reviewed and negative ED Past Medical Hx - Past Medical History Hx Asthma: Yes - Surgical History Additional Surgical History: ANKLE SURGERY - Social History Smoking Status: Never Smoker - Medications Home Medications: Home Medications Medication Instructions Recorded Confirmed Last Taken Type Benzonatate [Tessalon Perles] 100 mg PO Q8HR #30 capsule 07/19/19 Unknown Rx Doxycycline Hyclate [Doxycycline 100 mg PO Q12HR #20 tab 07/19/19 Unknown Rx Hyclate TAB] ALBUTEROL NEB's [Proventil 0.083% 3 ml IH Q6H PRN #270 ml 10/31/19 Unknown Rx NEBS] Albuterol Sulfate [Proventil Hfa] 1 - 2 puff IH Q6H PRN #1 hfa.aer.ad 10/31/19 Unknown Rx Prednisone [predniSONE 10 mg 10 mg PO .TAPER #21 tab.ds.pk 10/31/19 Unknown Rx (6-Day Pack, 21 Tabs)] ED Physical Exam - General General appearance: alert, in no apparent distress - Head Head exam: Present: atraumatic, normocephalic - Eye Eye exam: Present: normal appearance - ENT ENT exam: Present: mucous membranes moist - Neck Neck exam: Present: normal inspection - Respiratory Respiratory exam: Present: respiratory distress, wheezes, decreased breath sounds. Absent: normal lung sounds bilaterally, rhonchi, stridor, chest wall tenderness, accessory muscle use - Cardiovascular Cardiovascular Exam: Present: regular rate, normal rhythm. Absent: bradycardia, tachycardia, systolic murmur, diastolic murmur, rubs, gallop - GI/Abdominal GI/Abdominal exam: Present: soft, normal bowel sounds. Absent: tenderness, guarding, rebound - Rectal Rectal exam: Present: deferred - Extremities Exam Extremities exam: Present: normal inspection - Back Exam Back exam: Present: normal inspection - Neurological Exam Neurological exam: Present: alert, oriented X3 - Psychiatric Psychiatric exam: Present: normal affect, normal mood - Skin Skin exam: Present: warm, dry, intact, normal color. Absent: rash ED Course Vital Signs 02/03/21 03:04 Temperature 97.7 F Pulse Rate 102 H Respiratory 32 H Rate Blood Pressure 167/91 [Right] Critical care attestation.: If time is entered above; I have spent that time in minutes in the direct care of this critically ill patient, excluding procedure time. ED Disposition Condition: Stable
--- NOTE | 2021-02-03 05:14 | XRay Report ---
CHEST 2 VIEWS INDICATION / CLINICAL INFORMATION: Asthma. COMPARISON: 10/31/19. FINDINGS: SUPPORT DEVICES: None. HEART / MEDIASTINUM: The heart size and pulmonary vasculature are normal. LUNGS / PLEURA: No significant pulmonary or pleural abnormality. No pneumothorax. ADDITIONAL FINDINGS: No significant additional findings. IMPRESSION: No acute abnormality or significant change. Signer Name: Damon John MD Signed: 02/03/2021 5:09 AM Workstation Name: [id number]
[2021-02-03 06:31] VITALS: BP 133/76
== END 2021-02-03 06:34 | disposition home or self-care (01) ==
LOC: ED 03:01
DX: J45.909 Unspecified asthma, uncomplicated (principal)
CPT/HCPCS: 71046; 94640; 96365; 96375; 99283; J1100; J1200; J3475; J7030; 94644; Q0162